=== PATIENT | male | born 1955 | race American Indian/Alaskan Native ===

== ENCOUNTER 2018-04-01 10:46 | Day surgery (SDC) | payer OTHER ==
[2018-03-27 08:23] VITALS: BMI 32.0
[2018-04-01] MEDS ORDERED: Ciprofloxacin 400mg/200ml D5W 400 MG/200 ML BAG IVPB ONE (13:31)
[2018-04-01] MEDS ORDERED: Propofol 10 mg/ml Inj (20 ML) ONE (13:36)
[2018-04-01] MEDS: Gentamicin 160 MG in Sodium Chloride 0.9% 100 ML IVPB ONE ×2 (13:43→14:02)
[2018-04-01] MEDS ORDERED: Succinylcholine Chloride 20 mg/ml Syr (5 ml) IV ONE (13:44)
--- NOTE | 2018-04-01 14:30 | PCM.SURG1 ---
Surgeon's Initial Post Op Note - Surgeon's Notes Surgeon: ARA Resaw Operator: JENI Type of Anesthesia: General Endo Anesthesia Administered By: STAFF Pre-Operative Diagnosis: BPH REYES Operative Findings: BPH REYES Post-Operative Diagnosis: BPH REYES Operation Performed: TULAP Specimen/Specimens Removed: NA Estimated Blood Loss: EBL {In ML}: 0 Blood Products Given: N/A Drains Used: No Drains Post-Op Condition: Good Date of Surgery/Procedure: 04/01/18 Time of Surgery/Procedure: 14:29
[2018-04-01] MEDS ORDERED: HYDROmorphone 0.5 mg/0.5 ml ISec IVP PRN (14:35)
[2018-04-01 15:42] VITALS: RESP 10
[2018-04-01 16:07] VITALS: BP 124/83; PULSE 67; TEMP 98.1; O2SAT 98
--- NOTE | 2018-04-02 01:56 | OP ---
PROCEDURE DATE: 04/01/2018 PREOPERATIVE DIAGNOSES: Benign prostatic hypertrophy and bladder outlet obstruction. POSTOPERATIVE DIAGNOSES: Benign prostatic hypertrophy and bladder outlet obstruction. PROCEDURE: Transurethral laser ablation of the prostate (TULAP). SURGEON: Giovanni Rhodes MD DESCRIPTION OF PROCEDURE: As follows: After he was asked to sign a detailed informed consent and advised of all the risks and complications and alternatives of TULAP, the patient was brought into the room, draped and prepped in the usual manner and received prophylactic antibiotics. He was cystoscoped with #21 Storz laser resectoscope and previous cystoscopic findings were confirmed. The working element was inserted and the laser fiber was used to vaporize the obstructing prostatic tissue from just distal to the bladder neck and just proximal to the verumontanum. The left side was vaporized first. The right side was vaporized subsequently, and the base and the roof tissue were vaporized using similar precautions. No injury occurred to the verumontanum, external sphincter, ureteral orifices. The patient tolerated this procedure well, and was sent to the recovery area in good condition. Detailed postoperative instructions were given. Giovanni Rhodes MD
== END 2018-04-01 16:30 | disposition home or self-care (01) ==
LOC: C.SDS 10:46
PROVIDERS: ATTEND Urology
DX: N40.1 Benign prostatic hyperplasia with lower urinary tract symptoms (principal); N13.8 Other obstructive and reflux uropathy; N32.0 Bladder-neck obstruction; I10 Essential (primary) hypertension; E78.5 Hyperlipidemia, unspecified
CPT/HCPCS: 52648; A4322; A4358; J0744; J1580